=== PATIENT | female | born 1965 | race Caucasian/White ===

== ENCOUNTER 2017-07-12 11:59 | Emergency (ER) | payer MEDICAID ==
[2017-07-12 12:59] LABS: APPEARANCE CLEAR (CLEAR); BACTERIA FEW /hpf (NONE SEEN); BILIRUBIN NEGATIVE (NEGATIVE); COLOR STRAW (YELLOW); EPITHELIAL CELLS 0-5 /hpf (0-5); GLUCOSE NEGATIVE (NEGATIVE); KETONE NEGATIVE (NEGATIVE); NITRITE NEGATIVE (NEGATIVE); PROTEIN NEGATIVE (NEGATIVE); RED CELLS - URINE 0-5 /hpf (0-5); UROBILINOGEN NORMAL (NORMAL); WHITE CELLS - URINE RARE /hpf (0-5)
== END 2017-07-12 13:58 | disposition home or self-care (01) ==
LOC: D.ER 11:59
PROVIDERS: Emergency Medicine
DX: S39.012A Strain of muscle, fascia and tendon of lower back, initial encounter (principal); X58.XXXA Exposure to other specified factors, initial encounter; Y93.89 Activity, other specified; Y92.029 Unspecified place in mobile home as the place of occurrence of the external cause; M62.838 Other muscle spasm; F17.200 Nicotine dependence, unspecified, uncomplicated

== ENCOUNTER 2018-05-07 06:20 | Day surgery (SDC) | payer MEDICAID ==
[2018-05-06 08:59] LABS: BASOPHILS 0.1 % (0-2); EOSINOPHILS 0.5 % (0-7); HEMATOCRIT 46.4 % (36.0-48.0); HEMOGLOBIN 16.1 g/dL (12-16); IMMATURE GRANULOCYTES 0.5 % (0-5); LYMPHOCYTES 23.5 % (15-50); MCH 32.9 pg (26.0-34.0); MCHC 34.7 g/dL (31.0-37.0); MCV 94.7 fL (80.0-100.0); MEAN PLATELET VOLUME 11.4 fL (7.4-10.4); MONOCYTES 7.4 % (2-11); RDW 13.8 % (11.5-14.5); WBC 9.4 10x3/uL (4.8-10.8)
[2018-05-06 09:02] LABS: PLATELET COUNT 170 10x3/uL (130-400)
[2018-05-06 09:10] LABS: ANION GAP 8.5 mmol/L (8-16); CALCIUM 8.5 mg/dL (8.5-10.1); CREATININE - SERUM 0.9 mg/dL (0.6-1.3); POTASSIUM - SERUM 4.5 mmol/L (3.5-5.1)
[~2018-05-07] VITALS: Ht 403.9 cm; Wt 95.3 kg
--- NOTE | ~2018-05-07 | OP ---
PATIENT NAME: KRISTINA VILLALOBOS MEDICAL RECORD: [id number] :65 LOCATION:D[facility] ADMISSION DATE: SURGEON: RIKY QUEZADA MD DATE OF OPERATION: 05/07/2018 PREOPERATIVE DIAGNOSES: 1. Postmenopausal bleeding. 2. Abnormal ultrasound findings. POSTOPERATIVE DIAGNOSES: 1. Postmenopausal bleeding. 2. Abnormal ultrasound findings. PROCEDURES: 1. Hysteroscopy. 2. Dilation and curettage. SURGEON: Riky Quezada MD IMAGING SERVICES DIRECTOR: Gerardo Armijo ANESTHESIOLOGIST: Corwin Holloway MD ANESTHESIA: LMA. FINDINGS: Uterus sounds to 7.5 cm. There is a nabothian cyst present on the cervix. At the time of hysteroscopy, the vaginal vault or the uterine cavity shows some inflammation and no evidence of masses detected. Bimanual exam is limited by the patient's body habitus but no masses are palpated. SPECIMENS REMOVED: Endometrial curettings. SPECIMEN DISPOSITION: Pathology. ESTIMATED BLOOD LOSS: Minimal. FLUIDS: 750 cc of lactated Ringer's. URINE OUTPUT: 200 cc of clear urine catheterized prior to the procedure. COMPLICATIONS: None. DRAINS: None. INDICATIONS: The patient is a 52-year-old female with bleeding irregularities are present to the clinic with ultrasound showing possible intrauterine mass. The patient has consented for a hysteroscopy, dilation and curettage. DESCRIPTION OF PROCEDURE: After informed consent was assured, the patient was taken to the operating room where anesthetic was obtained without difficulty. The patient is now prepped and draped after being placed in Estuardo stirrups. Speculum was introduced in the vagina. The cervix was visualized and grasped with single tooth tenaculum. Cervix with the above findings. The cervix is OPERATIVE REPORT [id number] KRISTINA VILLALOBOS easily dilated to accommodate a 4 mm hysteroscope, which was inserted under direct visualization. The above findings were encountered. Cervix is now dilated to accommodate a #2 sharp curette. This curette was passed gently to the fundus and withdrawn several times. Good cry was obtained throughout. Scant tissue was returned. The tissue was collected and sent to pathology. Single tooth tenaculum was removed from the cervix and puncture sites show adequate hemostasis. The patient was taken down from the stirrups and went to the recovery area in stable condition. TRANSINT:[id number] Voice Confirmation ID: [id number] DOCUMENT ID: [id number] RIKY QUEZADA MD at 1627 CC: [id number] DICTATION DATE: 05/07/18 0957 FINISHED CARPET INSPECTOR: 05/07/18 1159 [facility] 05/07/18 [address] [place] [address]
[2018-05-07] MEDS ORDERED: AMITRIPTYLINE100 MG PO (08:30)
[2018-05-07] MEDS ORDERED: MOBIC7.5 MG PO (08:31)
[2018-05-07] MEDS ORDERED: ROBAXIN-750750 MG PO (08:32)
[2018-05-07] MEDS ORDERED: GABAPENTIN100 MG PO (08:33)
[2018-05-07] MEDS ORDERED: NEURONTIN 300300 MG PO (08:35)
[2018-05-07 08:57] VITALS: BP 126/97
[2018-05-07 09:09] VITALS: BP 126/97; Ht 403.9 cm; Wt 95.3 kg
== END 2018-05-07 11:58 | disposition home or self-care (01) ==
LOC: D.OPS 06:20 → D.PAN 07:30 → D.OPS 07:30
PROVIDERS: Obstetrics & Gynecology
DX: N95.0 Postmenopausal bleeding (principal); N88.8 Other specified noninflammatory disorders of cervix uteri; Z01.812 Encounter for preprocedural laboratory examination

== ENCOUNTER 2018-05-23 19:25 | Inpatient (IN) | payer MEDICAID ==
[~2018-05-23] VITALS: Ht 175.3 cm; Wt 86.4 kg
[~2018-05-23 19:25] MED LIST: AMITRIPTYLINE100 MG PO; GABAPENTIN100 MG PO; MOBIC7.5 MG PO; NEURONTIN 300300 MG PO; ROBAXIN-750750 MG PO
[2018-05-23] MEDS ORDERED: ZOVIRAX400 MG PO (19:34)
[2018-05-23 20:31] LABS: RBC 4.43 10x6/uL (4.00-5.40)
[2018-05-23 20:32] LABS: BASOPHILS 0.1 % (0-2); EOSINOPHILS 0.3 % (0-7); HEMATOCRIT 41.2 % (36.0-48.0); HEMOGLOBIN 14.2 g/dL (12-16); IMMATURE GRANULOCYTES 0.3 % (0-5); LYMPHOCYTES 18.1 % (15-50); MCH 32.1 pg (26.0-34.0); MCHC 34.5 g/dL (31.0-37.0); MEAN PLATELET VOLUME 11.6 fL (7.4-10.4); MONOCYTES 14.8 % (2-11); NEUTROPHILS 66.4 % (40-80); PLATELET COUNT 173 10x3/uL (130-400); RDW 13.4 % (11.5-14.5)
[2018-05-23 20:45] LABS: CREATININE - SERUM 1.1 mg/dL (0.6-1.3)
[2018-05-23 20:46] LABS: ALBUMIN 2.7 g/dL (3.4-5.0); ANION GAP 9.4 mmol/L (8-16); BILIRUBIN - TOTAL 0.36 mg/dL (0.2-1.3); CALCIUM 8.1 mg/dL (8.5-10.1); POTASSIUM - SERUM 3.4 mmol/L (3.5-5.1); PROTEIN - SERUM 6.8 g/dL (6.4-8.2)
[2018-05-23 21:53] LABS: APPEARANCE HAZY (CLEAR); BILIRUBIN NEGATIVE (NEGATIVE); COLOR YELLOW (YELLOW); GLUCOSE NEGATIVE (NEGATIVE); KETONE NEGATIVE (NEGATIVE); NITRITE NEGATIVE (NEGATIVE); PROTEIN TRACE mg/dL (NEGATIVE); SPECIFIC GRAVITY 1.015 (1.005-1.020)
[2018-05-23 21:54] LABS: BACTERIA MANY /hpf (NONE SEEN); MUCUS <1+ /lpf (NONE SEEN); RED CELLS - URINE 0-5 /hpf (0-5); WHITE CELLS - URINE 0-5 /hpf (0-5)
[2018-05-24] VITALS (8 sets, daily range): BP systolic 92–128; BP diastolic 49–77; Ht 175.3 cm; Wt 86.4 kg
[2018-05-25 04:00] VITALS: BP 123/57
[2018-05-25 10:10] VITALS: BP 134/69
[2018-05-25 20:23] VITALS: BP 136/64
[2018-05-26 03:44] VITALS: BP 148/63
[2018-05-26 08:20] VITALS: BP 115/59
[2018-05-26 11:20] LABS: BASOPHILS 0.2 % (0-2); EOSINOPHILS 0.8 % (0-7); HEMATOCRIT 34.8 % (36.0-48.0); IMMATURE GRANULOCYTES 0.2 % (0-5); LYMPHOCYTES 25.1 % (15-50); MCH 31.9 pg (26.0-34.0); MCHC 34.5 g/dL (31.0-37.0); MCV 92.6 fL (80.0-100.0); MEAN PLATELET VOLUME 10.9 fL (7.4-10.4); MONOCYTES 14.4 % (2-11); NEUTROPHILS 59.3 % (40-80); PLATELET COUNT 196 10x3/uL (130-400); RBC 3.76 10x6/uL (4.00-5.40); RDW 13.5 % (11.5-14.5); WBC 5.1 10x3/uL (4.8-10.8)
[2018-05-26 11:34] LABS: CALC OSMOLALITY 283 mosm/kg (275-300); CALCIUM 8.1 mg/dL (8.5-10.1); CHLORIDE - SERUM 106 mmol/L (98-107); CREATININE - SERUM 0.7 mg/dL (0.6-1.3); GLUCOSE 115 mg/dL (74-106); POTASSIUM - SERUM 3.2 mmol/L (3.5-5.1); SODIUM 143 mmol/L (136-145); UREA NITROGEN 7 mg/dL (7-18); eGFR NON AFRICAN AMERICAN > 90 mL/min (90-120)
[2018-05-26 11:53] VITALS: BP 143/68
[2018-05-26 22:04] VITALS: BP 129/77
[2018-05-27 04:00] VITALS: BP 122/71
[2018-05-27 04:49] LABS: BASOPHILS 0.2 % (0-2); EOSINOPHILS 1.3 % (0-7); HEMATOCRIT 34.2 % (36.0-48.0); HEMOGLOBIN 11.8 g/dL (12-16); IMMATURE GRANULOCYTES 0.6 % (0-5); MCH 31.9 pg (26.0-34.0); MCHC 34.5 g/dL (31.0-37.0); MCV 92.4 fL (80.0-100.0); MEAN PLATELET VOLUME 11.2 fL (7.4-10.4); MONOCYTES 11.2 % (2-11); NEUTROPHILS 51.7 % (40-80); PLATELET COUNT 209 10x3/uL (130-400); RDW 13.5 % (11.5-14.5); WBC 4.7 10x3/uL (4.8-10.8)
[2018-05-27 05:06] LABS: CALC OSMOLALITY 280 mosm/kg (275-300); CALCIUM 8.2 mg/dL (8.5-10.1); CHLORIDE - SERUM 108 mmol/L (98-107); CREATININE - SERUM 0.7 mg/dL (0.6-1.3); GLUCOSE 100 mg/dL (74-106); POTASSIUM - SERUM 3.2 mmol/L (3.5-5.1); SODIUM 142 mmol/L (136-145); UREA NITROGEN 7 mg/dL (7-18); eGFR NON AFRICAN AMERICAN > 90 mL/min (90-120)
[2018-05-27 08:03] VITALS: BP 138/68
[2018-05-27 11:59] VITALS: BP 132/75
[2018-05-27 17:24] VITALS: BP 141/71
[2018-05-27] MEDS ORDERED: PROTONIX40 MG PO (17:54)
[2018-05-27] MEDS ORDERED: NICODERM C1 PATCH .3 TRANSDERM (17:55)
[2018-05-27] MEDS ORDERED: LEVAQUIN750 MG PO (17:55)
[2018-05-27] MEDS ORDERED: PROAIR HFA8.5 GM INH (18:03)
== END 2018-05-27 18:45 | disposition home or self-care (01) | DRG 195 ==
LOC: D.ER 19:25 → D.EDHOLD 22:42 → D.MS 22:42
PROVIDERS: Emergency Medicine; Family Medicine
DX: J18.9 Pneumonia, unspecified organism (principal); K59.00 Constipation, unspecified; G62.9 Polyneuropathy, unspecified; F17.210 Nicotine dependence, cigarettes, uncomplicated; G47.00 Insomnia, unspecified; G89.29 Other chronic pain; M54.5 Low back pain; K21.9 Gastro-esophageal reflux disease without esophagitis

== ENCOUNTER 2018-06-19 20:13 | Emergency (ER) | payer MEDICAID ==
[~2018-06-19] VITALS: Ht 175.3 cm; Wt 100.0 kg
[~2018-06-19 20:13] MED LIST changes: +LEVAQUIN750 MG PO; +NICODERM C1 PATCH .3 TRANSDERM; +PROAIR HFA8.5 GM INH; +PROTONIX40 MG PO; +ZOVIRAX400 MG PO
[2018-06-19 20:24] VITALS: Ht 175.3 cm; Wt 100.0 kg
[2018-06-19 21:46] LABS: ALBUMIN 3.4 g/dL (3.4-5.0); ALKALINE PHOSPHATASE 138 U/L (46-116); ALT (SGPT) 26 U/L (10-68); BILIRUBIN - TOTAL 0.23 mg/dL (0.2-1.3); CALC OSMOLALITY 278 mosm/kg (275-300); CALCIUM 8.9 mg/dL (8.5-10.1); CARBON DIOXIDE 28.7 mmol/L (21.0-32.0); CHLORIDE - SERUM 104 mmol/L (98-107); CREATININE - SERUM 0.8 mg/dL (0.6-1.3); GLUCOSE 104 mg/dL (74-106); POTASSIUM - SERUM 3.4 mmol/L (3.5-5.1); PROTEIN - SERUM 6.8 g/dL (6.4-8.2); SODIUM 139 mmol/L (136-145); UREA NITROGEN 16 mg/dL (7-18); eGFR NON AFRICAN AMERICAN 80 mL/min (90-120)
[2018-06-19 21:52] LABS: BASOPHILS 0 % (0-2); EOSINOPHILS 1.2 % (0-7); HEMATOCRIT 43.3 % (36.0-48.0); HEMOGLOBIN 14.9 g/dL (12-16); IMMATURE GRANULOCYTES 0.5 % (0-5); LYMPHOCYTES 25.1 % (15-50); MCH 31.8 pg (26.0-34.0); MCHC 34.4 g/dL (31.0-37.0); MCV 92.3 fL (80.0-100.0); MEAN PLATELET VOLUME 11.9 fL (7.4-10.4); MONOCYTES 10.8 % (2-11); NEUTROPHILS 62.4 % (40-80); PLATELET COUNT 129 10x3/uL (130-400); RBC 4.69 10x6/uL (4.00-5.40); RDW 13.7 % (11.5-14.5); WBC 4.1 10x3/uL (4.8-10.8)
[2018-06-19] MEDS ORDERED: OMNICEF300 MG PO (22:52)
[2018-06-19 23:15] VITALS: BP 137/67
== END 2018-06-19 23:15 | disposition home or self-care (01) ==
LOC: D.ER 20:13
PROVIDERS: Family Medicine
DX: R50.9 Fever, unspecified (principal); Z87.01 Personal history of pneumonia (recurrent); R53.81 Other malaise; F17.200 Nicotine dependence, unspecified, uncomplicated

== ENCOUNTER 2018-09-03 06:00 | Day surgery (SDC) | payer MEDICAID ==
[~2018-09-03] VITALS: Ht 175.3 cm; Wt 98.9 kg
[2018-09-03 06:56] VITALS: BP 128/80; Ht 175.3 cm; Wt 98.9 kg
[2018-09-03] MEDS ORDERED: OXYCODONE HCL5 M1 PO (09:18)
== END 2018-09-03 13:10 | disposition home or self-care (01) ==
LOC: D.OPS 06:00
DX: K43.6 Other and unspecified ventral hernia with obstruction, without gangrene (principal); Z01.812 Encounter for preprocedural laboratory examination

== ENCOUNTER → 2018-09-03 06:00 | Day surgery (SDC) | payer MEDICAID ==
[2018-06-19 20:24] VITALS: Ht 175.3 cm; Wt 98.9 kg
[2018-09-02 14:42] LABS: HEMOGLOBIN 15.5 g/dL (12-16); MCH 32.1 pg (26.0-34.0); MCHC 34.4 g/dL (31.0-37.0); MCV 93.2 fL (80.0-100.0); MEAN PLATELET VOLUME 11.7 fL (7.4-10.4); RBC 4.83 10x6/uL (4.00-5.40); RDW 14.7 % (11.5-14.5); WBC 10.5 10x3/uL (4.8-10.8)
[~2018-09-03] VITALS: Ht 175.3 cm; Wt 98.9 kg
[~2018-09-03 06:00] MED LIST changes: +BUSPAR10 MG PO; -NEURONTIN 300300 MG PO; +NEURONTIN600 MG PO; +OMNICEF300 MG PO; +OXYCODONE HCL5 M1 PO
== END | disposition home or self-care (01) ==
LOC: D.PAN 09-02 13:00 → D.OPS 09-02 13:00
PROVIDERS: Anesthesiology
DX: K43.6 Other and unspecified ventral hernia with obstruction, without gangrene (principal); Z01.812 Encounter for preprocedural laboratory examination

== ENCOUNTER → 2019-02-05 16:26 | Outpatient (CLI) | payer MEDICAID ==
[2018-09-03 06:56] VITALS: BMI 32.2
[~2019-02-05 16:26] MED LIST changes: +Nicoderm [PBKC] TRANSDERM; +PREDNISONE10 MG PO; +SPIRIVA18 MCG; +ZITHROMAX250 MG
== END | disposition home or self-care (01) ==
LOC: D.MAMMO 10:15
PROVIDERS: ATTEND Family Medicine
DX: Z12.31 Encounter for screening mammogram for malignant neoplasm of breast (principal)

== ENCOUNTER 2019-02-07 20:14 | Inpatient (IN) | payer MEDICAID ==
[~2019-02-07] VITALS: Ht 175.3 cm; Wt 100.0 kg
--- NOTE | ~2019-02-07 | EC ---
PATIENT:KRISTINA VILLALOBOS DATE OF SERVICE: 02/07/19 SEX: F MEDICAL RECORD: [id number] DATE OF : 65 LOCATION:D[facility] AGE OF PATIENT: 53 ADMISSION DATE: 02/07/19 REFERRING PHYSICIAN: INTERPRETING PHYSICIAN: GOMEZ MARQUEZ MD ECHOCARDIOGRAM REPORT ECHO CHARGES 4 ECHO COMPLETE Date: 02/08/19 CLINICAL DIAGNOSIS: DYSPNEA ECHOCARDIOGRAPHIC MEASUREMENTS (adult normal given) AC root (d.<3.7cm) 2.9 cm LV Septum d (<1.2 cm> 1.6 cm Valve Excursion 1.5 cm LV Septum (systole) 2.3 cm Left Atria (s.<4.0cm> 4.0 cm LVPW d(<1.2cm) 1.0 cm RV (d.<2.3cm) 3.5 cm LVPW (sytole) 1.2 cm LV diastole(<5.6CM) 5.4 cm MV E-F(>70mm/sec) cm LV systole 3.1 cm LVOT Diameter 1.9 cm MV exc.(>10mm) cm Est.ejection fraction (50-75%) % DOPPLER: LVIT cm/sec A 98 cm/sec E 59 cm/sec LA cm/sec RVSP 21.4 mmHg LVOT 167 cm/sec AOP1/2T m/s Asc. Ao 203 cm/sec RVOT 105 cm/sec RA cm/sec PA 122 cm/sec AV Gradient Peak 16.4 mmHg AV Mean 8.3 mmHg AV Area 2.6 cm MV Gradient Peak 5.1 mmHg MV Mean 2.2 mmHg MV Area cm COMMENTS: Funeral Attendant: Radha [facility] Atm Mechanic: 1 Dr. Marquez TAPE# PACS Pericardial Effusion N DATE OF SERVICE: 02/08/2019 FINDINGS: 1. Left ventricular chamber size is within normal limits. Left ventricular systolic function is normal. Overall ejection fraction is estimated at 65%. 2. Left atrium, right atrium, and right ventricular chamber sizes are within normal limit. 3. Valvular structures have normal structure and motion. 4. Doppler interrogation reveals mild mitral regurgitation and mild tricuspid regurgitation. No other valvular insufficiency or stenosis. Pulmonary systolic ECHOCARDIOGRAM REPORT [id number] KRISTINA VILLALOBOS pressure is estimated at 21 mmHg. 5. No evidence of pericardial effusion or left ventricular thrombus. TRANSINT:[id number] Voice Confirmation ID: [id number] DOCUMENT ID: [id number] GOMEZ MARQUEZ MD CC: [id number] DICTATION DATE: 02/09/19 1007 TRANSFER STATION ATTENDANT: 02/09/19 1206 ADM IN [id number] [place] [address]
[~2019-02-07 20:14] MED LIST changes: -Nicoderm [PBKC] TRANSDERM; -PREDNISONE10 MG PO; -SPIRIVA18 MCG; -ZITHROMAX250 MG
[2019-02-07] MEDS ORDERED: ZITHROMAX250 MG (20:35)
[2019-02-07] MEDS ORDERED: SPIRIVA18 MCG (20:35)
[2019-02-07 20:42] LABS: BASOPHILS 0.1 % (0-2); EOSINOPHILS 0.6 % (0-7); HEMATOCRIT 41.7 % (36.0-48.0); HEMOGLOBIN 14.1 g/dL (12-16); LYMPHOCYTES 20.4 % (15-50); MCH 31.7 pg (26.0-34.0); MCHC 33.8 g/dL (31.0-37.0); MCV 93.7 fL (80.0-100.0); MEAN PLATELET VOLUME 11.2 fL (7.4-10.4); MONOCYTES 10.2 % (2-11); NEUTROPHILS 67.7 % (40-80); RBC 4.45 10x6/uL (4.00-5.40); RDW 13.3 % (11.5-14.5); WBC 11.6 10x3/uL (4.8-10.8)
[2019-02-07 20:44] LABS: PLATELET COUNT 257 10x3/uL (130-400)
[2019-02-07 20:50] LABS: APTT 29.1 SECONDS (22.8-39.4); INR 1.02 (0.85-1.17); PROTIME 12.9 SECONDS (11.6-15.0)
[2019-02-07 21:02] LABS: ALBUMIN 2.9 g/dL (3.4-5.0); ALKALINE PHOSPHATASE 124 U/L (46-116); ALT (SGPT) 72 U/L (10-68); CALC OSMOLALITY 283 mosm/kg (275-300); CARBON DIOXIDE 29.4 mmol/L (21.0-32.0); CHLORIDE - SERUM 105 mmol/L (98-107); CREATININE - SERUM 0.8 mg/dL (0.6-1.3); GLUCOSE 113 mg/dL (74-106); POTASSIUM - SERUM 3.9 mmol/L (3.5-5.1); PROTEIN - SERUM 7.3 g/dL (6.4-8.2); SODIUM 141 mmol/L (136-145); UREA NITROGEN 18 mg/dL (7-18); eGFR NON AFRICAN AMERICAN 79 mL/min (90-120)
[2019-02-07 21:12] LABS: CKMB 0.9 U/L (0.0-3.6); CREATINE KINASE 377 UL (21-215); PRO BNP 353 pg/mL (0-125); TROPONIN-I < 0.017 ng/mL (0.000-0.060)
[2019-02-07 21:41] VITALS: BP 145/64
[2019-02-07 22:23] LABS: MONO NEGATIVE (NEGATIVE)
[2019-02-07 22:40] VITALS: BP 138/72
--- NOTE | 2019-02-07 22:50 | NUR ---
PT TAKEN TO CT
--- NOTE | 2019-02-08 00:17 | NUR ---
EKG NOT ORDERED MD DENIES NEED FOR EKG. EKG NOT DONE.
--- NOTE | 2019-02-08 00:20 | NUR ---
ACCOMPANIED BY STAFF, AMBULATED TO BED W/O ISSUE. DENIES PAIN, BUT REPORTS AN ACHY BODY FEELING. A&O, REQUEST SANDWICH AND SODA. VITAL SIGNS STABLE. WILL CONTINUE TO MONITOR.
[2019-02-08 00:46] VITALS: BP 135/76; Ht 175.3 cm; Wt 100.0 kg
[2019-02-08 08:09] VITALS: BP 115/54
[2019-02-08 11:53] VITALS: BP 133/68
--- NOTE | 2019-02-08 14:48 | NUR ---
I have reviewed this patient and I concur with the Shift Assessment completed by the Licensed Practical Nurse today this shift.
[2019-02-08 15:06] VITALS: BP 120/60
--- NOTE | 2019-02-08 15:46 | NUR ---
I have reviewed this patient and I concur with the Shift Assessment completed by the Licensed Practical Nurse today this shift.
[2019-02-08 20:22] VITALS: BP 120/53
[2019-02-09 00:49] VITALS: BP 123/65
--- NOTE | 2019-02-09 04:30 | NUR ---
REPORTS SOB EPISODE EARLIER IN DAY. 3L 02 IN USE VIA NASAL CANNULA. VITAL SIGNS STABLE. BROUGHT PT SUPPLIES FOR SHOWER, PT REQUESTED PAIN MEDICATION FOR BACK WHEN SHE GETS OUT. BP CHECKED POST-SHOWER, and WNL. WILL CONTINUE TO MONITOR.
[2019-02-09 05:55] LABS: HEMATOCRIT 41.1 % (36.0-48.0); HEMOGLOBIN 14.2 g/dL (12-16); MCH 31.6 pg (26.0-34.0); MCHC 34.5 g/dL (31.0-37.0); MCV 91.3 fL (80.0-100.0); MEAN PLATELET VOLUME 11.3 fL (7.4-10.4); PLATELET COUNT 286 10x3/uL (130-400); RDW 13.2 % (11.5-14.5); WBC 25.8 10x3/uL (4.8-10.8)
[2019-02-09 05:58] LABS: ALBUMIN 2.8 g/dL (3.4-5.0); BILIRUBIN - TOTAL 0.16 mg/dL (0.2-1.3); CALCIUM 9.3 mg/dL (8.5-10.1); CARBON DIOXIDE 26.5 mmol/L (21.0-32.0); CREATININE - SERUM 0.9 mg/dL (0.6-1.3); MAGNESIUM - SERUM 1.9 mg/dL (1.8-2.4); POTASSIUM - SERUM 3.5 mmol/L (3.5-5.1); PROTEIN - SERUM 7.3 g/dL (6.4-8.2)
[2019-02-09 07:24] LABS: LYMPHOCYTES 1 % (15-50); MONOCYTES 2 % (2-11); NEUTROPHILS 95 % (40-80)
[2019-02-09 07:25] LABS: PLATELET ESTIMATE NORMAL; TOXIC GRANULATION 1+; VACUOLES 1+
[2019-02-09 09:00] VITALS: BP 103/46
[2019-02-09 14:03] VITALS: BP 112/60
[2019-02-09 16:53] VITALS: BP 103/53
[2019-02-09 22:12] VITALS: BP 116/61
--- NOTE | 2019-02-10 | NUR ---
REPORTS PAIN MEDICATION WORN OFF, INFORMED PT OF TIME BEFORE NEXT ALLOWABLE DOSE, PT STATED SHE WAS RESTLESS AND WOULD RATHER HER HOME PAIN MEDICATION BECAUSE IT LASTS LONGER.
[2019-02-10 01:15] VITALS: BP 124/57
--- NOTE | 2019-02-10 03:09 | NUR ---
I have reviewed this patient and I concur with the Shift Assessment completed by the Licensed Practical Nurse today this shift.
[2019-02-10 05:13] LABS: BASOPHILS 0 % (0-2); EOSINOPHILS 0 % (0-7); HEMATOCRIT 37.7 % (36.0-48.0); HEMOGLOBIN 12.8 g/dL (12-16); IMMATURE GRANULOCYTES 1.4 % (0-5); LYMPHOCYTES 3.5 % (15-50); MCH 31.4 pg (26.0-34.0); MCV 92.6 fL (80.0-100.0); MEAN PLATELET VOLUME 11.1 fL (7.4-10.4); MONOCYTES 3.4 % (2-11); NEUTROPHILS 91.7 % (40-80); PLATELET COUNT 290 10x3/uL (130-400); RBC 4.07 10x6/uL (4.00-5.40); RDW 13.6 % (11.5-14.5); WBC 27.2 10x3/uL (4.8-10.8)
[2019-02-10 05:29] VITALS: BP 104/52
[2019-02-10 05:43] LABS: ALBUMIN 2.6 g/dL (3.4-5.0); ALKALINE PHOSPHATASE 116 U/L (46-116); ALT (SGPT) 37 U/L (10-68); BILIRUBIN - TOTAL 0.21 mg/dL (0.2-1.3); CALC OSMOLALITY 287 mosm/kg (275-300); CALCIUM 8.6 mg/dL (8.5-10.1); CHLORIDE - SERUM 103 mmol/L (98-107); CREATININE - SERUM 0.7 mg/dL (0.6-1.3); GLUCOSE 198 mg/dL (74-106); MAGNESIUM - SERUM 1.9 mg/dL (1.8-2.4); POTASSIUM - SERUM 3.7 mmol/L (3.5-5.1); PROTEIN - SERUM 6.5 g/dL (6.4-8.2); SODIUM 139 mmol/L (136-145); UREA NITROGEN 24 mg/dL (7-18); eGFR NON AFRICAN AMERICAN > 90 mL/min (90-120)
[2019-02-10 09:04] VITALS: BP 114/60
--- NOTE | 2019-02-10 13:08 | MORECARE ---
CASE MANAGEMENT DISCHARGE SUMMARY PATIENT: KRISTINA VILLALOBOS UNIT: [id number] ADM DATE: 02/07/19 AGE: 53 : 65 SEX: F ROOM/BED: D.2232 AUTHOR: HOMAR LANE PHYSICIAN: REFERRING PHYSICIAN: RAJESH QUICK MD DATE OF SERVICE: 02/10/19 Discharge Plan Patient Name: KRISTINA VILLALOBOS [facility] [facility] 1965 Planned Disposition: Home Anticipated Discharge Date: Discharge Date: Expected LOS: Initial Reviewer: [email or web address] Initial Review Date: 02/08/2019 Generated: 02/10/19 2:08 pm Comments DCP- Discharge Planning Updated by [email or web address]: Jaja Almeida on 02/10/19 12:[address] Walk test completed by RT, she is 95% on room air at rest and 92% with exertion. She does not qualify for home oxygen. CM will continue to follow and assist with discharge planning/needs. Patient Name: KRISTINA VILLALOBOS Page [phone] at 1308 All edits/amendments must be made on the electronic document DICTATION DATE: 02/10/19 1308 PHYSICAL THERAPY AIDE: KAYE 02/10/19 1308 RPT#: [id number] DC DATE: STATUS: ADM IN [facility] [address] [place] [address] END OF REPORT
[2019-02-10 13:34] VITALS: BP 115/55
[2019-02-10] MEDS ORDERED: LEVAQUIN750 MG PO (13:40)
[2019-02-10] MEDS ORDERED: Nicoderm [PBKC] TRANSDERM (13:41)
[2019-02-10] MEDS ORDERED: PREDNISONE10 MG PO (13:41)
--- NOTE | 2019-02-10 14:47 | NUR ---
DISCUSSED DISCHARGE, MEDICATION AND FOLLOW-UP INSTRUCTIONS WITH PATIENT. IV REMOVED, TIP INTACT. TOOK PATIENT BELONGINGS BAG. SHE IS GATHERING BELONGINGS AND WILL CALL DESK FOR WHEELCHAIR WHEN READY.
--- NOTE | 2019-02-10 15:01 | NUR ---
PATIENT DISCHARGED HOME VIA WHEELCHAIR BY VOLUNTEER STAFF. ALL BELONGINGS TAKEN WITH PATIENT.
--- NOTE | 2019-02-10 16:07 | MORECARE ---
CASE MANAGEMENT DISCHARGE SUMMARY PATIENT: KRISTINA VILLALOBOS UNIT: [id number] ADM DATE: 02/07/19 AGE: 53 : 65 SEX: F ROOM/BED: D.2232 AUTHOR: ARIANA,DOC PHYSICIAN: REFERRING PHYSICIAN: RAJESH QUICK MD DATE OF SERVICE: 02/10/19 Discharge Plan Patient Name: KRISTINA VILLALOBOS Facility: [facility]:[place] : 1965 Planned Disposition: Home Anticipated Discharge Date: Discharge Date: 02/10/2019 Expected LOS: Initial Reviewer: [email or web address] Initial Review Date: 02/08/2019 Generated: 02/10/19 5:06 pm Comments DCP- Discharge Planning Updated by [email or web address]: Jaja Almeida on 02/10/19 3:[address] Patient Name: KRISTINA VILLALOBOS Admission Status: ER Accout number: [id number] Admission Date: 02-07-2019 : 1965 Admission Diagnosis:PNEUMONIA, UNSPECIFIED ORGANISM Attending: RAJESH QUICK Current LOS: 3 Anticipated DC Date: Planned Disposition: Home [facility] [place] Discharge Planning Comments:CM met with patient to complete initial dc planning assessment. CM educated patient on the CM role and verbal consent given by patient to complete assessment. Patient lives at home with her 9 year old grand daughter. Her sister, Kinjal, is watching her. At discharge patient plans to return and feels this is a safe discharge. CM discussed availability of home health, rehab services, and medical equipment. Patient denied known discharge needs at this time. She states she drove herself here and will drive herself home. CM will continue to follow and will assist as needed with dc plans/needs. Snaker Tractor Driver: Jaja Almeida DCP- Discharge Planning Updated by [email or web address]: Jaja Almeida on 02/10/19 12:[address] Walk test completed by RT, she is 95% on room air at rest and 92% with exertion. She does not qualify for home oxygen. CM will continue to follow and assist with discharge planning/needs. DCPIA - Discharge Planning Initial Assessment Updated by [email or web address]: Jaja Almeida on 02/10/19 4:04 pm * Is the patient Alert and Oriented? Yes * How many steps to enter\exit or inside your home? 13/0 * PCP [facility] * Pharmacy [facility] [address] * Preadmission Environment Home with Family * ADLs Independent * Equipment None * List name and contact numbers for known caregivers / representatives who currently or will assist patient after discharge: Kinjal Schafer - [facility] - [phone] * Verbal permission to speak to the caregivers and representatives has been obtained from the patient. Yes * Community resources currently utilized None * Additional services required to return to the preadmission environment? No * Can the patient safely return to the preadmission environment? Yes * Has this patient been hospitalized within the prior 30 days at any hospital? No Last DP export: 02/10/19 12:08 p Patient Name: KRISTINA VILLALOBOS Page [phone] at 1607 All edits/amendments must be made on the electronic document DICTATION DATE: 02/10/191605 TURNTABLE MAN: KAYE 02/10/191605 RPT#: [id number] DC DATE:02/10/19 STATUS: DIS IN [facility] [address] [place] [address] END OF REPORT
[2019-02-11 13:13] LABS: EBV - EARLY ANTIGEN AB IGG <9.0 U/mL (0.0-8.9); EBV VIRAL CAPSID AB IGG 80.3 U/mL (0.0-17.9); EBV VIRAL CAPSID AB IGM <36.0 U/mL (0.0-35.9)
== END 2019-02-10 15:02 | disposition home or self-care (01) | DRG 193 ==
LOC: D.ER 20:14 → D.MS 23:32
PROVIDERS: Emergency Medicine; Family Medicine; ADMIT Internal Medicine Nephrology; ATTEND Internal Medicine Nephrology
DX: J18.9 Pneumonia, unspecified organism (principal); J96.01 Acute respiratory failure with hypoxia; J44.1 Chronic obstructive pulmonary disease with (acute) exacerbation; F17.213 Nicotine dependence, cigarettes, with withdrawal; G62.9 Polyneuropathy, unspecified; F41.8 Other specified anxiety disorders

== ENCOUNTER 2019-06-27 15:25 | Emergency (ER) | payer MEDICAID ==
[~2019-06-27] VITALS: Ht 175.3 cm; Wt 100.0 kg
[~2019-06-27 15:25] MED LIST changes: +Nicoderm [PBKC] TRANSDERM; +PREDNISONE10 MG PO; +SPIRIVA18 MCG; +ZITHROMAX250 MG
[2019-06-27 15:42] VITALS: Ht 175.3 cm; Wt 100.0 kg
[2019-06-27] MEDS ORDERED: ANUSOL-HC 2.5%30 GM RC (16:54)
[2019-06-27] MEDS ORDERED: STOOL SOFTENER100 M1 PO (16:55)
[2019-06-27 18:03] VITALS: BP 138/88
== END 2019-06-27 18:04 | disposition home or self-care (01) ==
LOC: D.ER 15:25
DX: K64.9 Unspecified hemorrhoids (principal)

== ENCOUNTER 2020-12-12 21:00 | Emergency (ER) | payer OTHER ==
[~2020-12-12] VITALS: Ht 175.3 cm; Wt 100.0 kg
[~2020-12-12 21:00] MED LIST changes: +ANUSOL-HC 2.5%30 GM RC; +CIPRO500 MG PO; +KEFLEX500 MG PO; +MACROBID100 MG PO; +PHENAZOPYRIDIN100 MG PO; +PHENAZOPYRIDIN200 MG PO; +STOOL SOFTENER100 M1 PO
[2020-12-12 21:05] VITALS: BP 144/79; Ht 175.3 cm; Wt 100.0 kg
[2020-12-12] MEDS ORDERED: CYCLOBENZAPRINE10 MG PO (21:33)
== END 2020-12-12 21:55 | disposition home or self-care (01) ==
LOC: D.ER 21:00
DX: S29.012A Strain of muscle and tendon of back wall of thorax, initial encounter (principal); X58.XXXA Exposure to other specified factors, initial encounter; J45.909 Unspecified asthma, uncomplicated; F17.210 Nicotine dependence, cigarettes, uncomplicated; M54.9 Dorsalgia, unspecified

== ENCOUNTER 2020-12-23 16:31 | Emergency (ER) | payer OTHER ==
[~2020-12-23] VITALS: Ht 175.3 cm; Wt 100.0 kg
[~2020-12-23 16:31] MED LIST changes: +CYCLOBENZAPRINE10 MG PO
[2020-12-23 16:36] VITALS: Ht 175.3 cm; Wt 100.0 kg
[2020-12-23] MEDS ORDERED: BACLOFEN20 M1 PO (18:08)
[2020-12-23] MEDS ORDERED: VOLTAREN75 MG PO (18:08)
[2020-12-23 19:45] VITALS: BP 152/82
== END 2020-12-23 19:36 | disposition home or self-care (01) ==
LOC: D.ER 16:31
DX: M54.5 Low back pain (principal); J45.909 Unspecified asthma, uncomplicated; Z72.0 Tobacco use